=== PATIENT | female | born 1960 | race Caucasian/White ===

== ENCOUNTER 2016-05-03 23:22 | Inpatient (IN) | payer MEDICARE, MEDICAID ==
[~2016-05-03] VITALS: Ht 176.5 cm; Wt 198.1 kg
[~2016-05-03 23:22] MED LIST: ALPR0.5T8 PO; AMLO2.5T PO; ASCO500C6 PO; ASPI-628 PO; ASPI81TA3 PO; CAND32TA2 PO; CARV12.52 PO; CEPH500C PO; CHOL200047 PO; CLIN-78 PO; CLIN30GE2 TP; CYAN1TAB42 PO; DOCU250C2 PO; FLUT16SP2 NS; FURO40TA4 PO; ISOS30TA PO; LEVO137T2 PO; MEDR10TA PO; MEDR10TA9 PO; METH750T3 PO; MULTIVITAMIN; MYCC TOP; NEFA150T PO; OMEP-113 PO; OMPR20CCR PO; OXYC-284 PO; ROSU5TAB PO
[2016-05-04] VITALS (12 sets, daily range): BP systolic 138–179; BP diastolic 64–80; PULSE 58–110; RESP 18–24; O2SAT 94–100
--- NOTE | 2016-05-04 | ED.REPORT ---
HPI-General Illness Date of Service May 04, 2016 ED Provider: Edd Grimm MD A 55 year old female with a history of CHF, hypertension, diabetes mellitus, GERD and panniculitis presents to the ED via EMS complaining of fever that began at 2100. Associated symptoms include fever, chills, fatigue, diaphoresis, nausea, defecation, vomiting, SOB and chest pain. Her chest began shortly after the fever. Patient took 2 Tylenol and one antibiotic at 2100 with no relief. She denies any recent sick contacts. Patient states that she was taking Humira for "boils" but she was unable to refill her prescription for approx. 2 weeks and attributes her current symptoms to this. She recently began Humira again 3 days ago. She denies diarrhea, cough or dysuria. Patient is a difficult historian. Nursing Notes Stated Complaint: FEVER, NOT FEELING WELL Nursing Notes Reviewed: Yes (Modlar, meds not reconciled) Allergies: Coded Allergies: latex (Verified Allergy, Intermediate, SKIN BLISTERS, 10/07/15) Cat Dander (Verified Allergy, Unknown, 04/02/14) TAPE (Verified Allergy, Unknown, 04/04/14) lisinopril (Verified Allergy, Unknown, makes me "drunk", 04/16/14) metformin (Verified Allergy, Unknown, 05/04/16) Uncoded Allergies: POLLENS (Allergy, Unknown, 04/02/14) Scheduled Amlodipine (Amlodipine) 2.5 Mg Tablet 2.5 MG PO DAILY Aspirin (Aspir 81) 81 Mg Tablet.dr 81 MG PO DAILY Aspirin Chew (Aspirin Chew) 81 Mg Tab.chew 81 MG PO DAILY Candesartan Cilexetil (Atacand) 32 Mg Tablet 32 MG PO DAILY Carvedilol (Carvedilol) 12.5 Mg Tablet 12.5 MG PO BID Cephalexin (Cephalexin) 500 Mg Capsule 500 MG PO QID Cholecalciferol (Vitamin D3) (Vitamin D3) 2,000 Unit Capsule 1-2 CAPSULE PO DAILY Clindamycin (Clindamycin) 300 Mg Capsule 300 MG PO QID Clindamycin Phosphate (Clindamycin Phosphate Gel) 30 Gm Gel..gram. 1 APPLIC TP BID Fluticasone Propionate (Flonase Nasal) 16 Gm Jackson.susp 1 SPRAY NS BID Fluticasone Propionate (Flonase Nasal) 16 Gm Jackson.susp 2 SPRAYS NS DAILY Furosemide (Furosemide) 40 Mg Tablet 40 MG PO DAILY Isosorbide Mononitrate (Imdur) 30 Mg Tab.er.24h 30 MG PO DAILY Levothyroxine (Levothyroxine) 137 Mcg Tablet 137 MCG PO DAILY Levothyroxine (Levothyroxine) 137 Mcg Tablet 137 MCG PO DAILY Medroxyprogesterone (Medroxyprogesterone) 10 Mg Tablet 10 MG PO DAILY Medroxyprogesterone Acetate (Provera) 10 Mg Tablet 10 MG PO BID Nefazodone (Nefazodone) 150 Mg Tablet 150 MG PO DAILY Nefazodone (Nefazodone) 150 Mg Tablet 2 TAB PO HS Omeprazole (Prilosec) 20 Mg Capcr 20 MG PO BID Omeprazole Magnesium (Omeprazole) 20 Mg Capsule.dr 20 MG PO DAILY Rosuvastatin Calcium (Crestor) 5 Mg Tablet 5 MG PO DAILY Scheduled PRN Alprazolam (Alprazolam) 0.5 Mg Tablet 0.5 MG PO TID PRN PRN For Anxiety Alprazolam (Alprazolam) 0.5 Mg Tablet 0.5 MG PO TID PRN PRN For Anxiety Docusate Sodium (Docusate Sodium) 250 Mg Capsule 250 MG PO BID PRN PRN For Constipation Methocarbamol (Methocarbamol) 750 Mg Tablet 750 MG PO QID PRN PRN For Spasm Oxycodone HCl/Acetaminophen 5-325 (Percocet 5-325) 1 Each Tablet 1 TAB PO Q4 PRN PRN For Pain Miscellaneous Medications ([multivitamin 9]) Ascorbic Acid (Vitamin C) 500 Mg Capsule.er 500 MG PO Candesartan Cilexetil (Atacand) 32 Mg Tablet 32 MG PO Cyanocobalamin/Folic Acid (Vitamin V27-Ehjxo Acid Tablet) 1 Each Tablet 1 EACH PO Nystatin (Nystatin) 60 Applic/15 Gm Cream 60 APPLIC TOP General Time Seen by MD: 23:59 Chief Complaint Fever Hx Obtained From: Patient Arrived By: Ambulance Sudden in Onset?: No Onset Occurred: 1 - 4 hours ago Symptom Duration: Since onset Associated with: Reports: Fever Additional Notes: Shaking Pertinent Negative: Pt denies other symptoms Recent Healthcare: No recent doctor visit, No recent hospitalization Past Medical History Past Medical History Notes: Last Admitted March 2014 for panniculitis Last ED visit was in September 2015 for panniculitis Past Medical History ovarian cysts cataract GERD 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 - followed at the [facility], recently had MRI patient reports "it is a medical mystery", and it sounds like diagnosis is actually unclear History of reccurent panniculitis Reports: Congestive heart failure, Diabetes mellitus, Hypertension Past Surgical History pannus removal Reports: Hysterectomy Smoking History Former Smoker Social History Alcohol Use: Denies alcohol use Drug Use: Denies drug use Other Social History: Local resident Ambulatory Status Wheelchair Review of Systems Full Review of Systems Constitutional: Reports: Chills, Fatigue, Fever Respiratory: Reports: Shortness of breath, Denies: Non-productive cough Cardiovascular: Reports: Chest pain GI: Reports: Nausea, Vomiting, Denies: Diarrhea Female: Denies: Dysuria Skin: Reports Diaphoresis Neurologic: Reports: Shaking, Denies: Change LOC Complete sys rev & neg: except as marked. Physical Exam Vital Signs Vital Signs Date Time Temp Pulse Resp B/P Pulse Ox O2 Delivery O2 Flow Rate FiO2 05/04/16 00:04 39.4 110 24 173/80 94 Room Air Initial VS: Reviewed, Unavailable (none on chart, ordered) Extremities: Vascular intact, Neuro intact, No swelling, No tenderness Neurologic: Alert, Oriented, Nonfocal General/Constitutional: Awake, Alert, Not toxic appearing Appearance / Presentation: Positive: Obese, morbidly GENERAL: Temp 102.5 F for EMS Ornery Fatigued Patient is very focused on "Humira withdrawal" and requires frequent redirection to current symptoms Patient states that she knows her medications but is unable to tell them too me now because she is "too tired" Head / Eyes: Atraumatic, Normocephalic, PERRL Respiratory / Chest: Atraumatic, Breath sounds NL, Breath sounds = bilat Cardiovascular: Regular rhythm, Heart sounds NL Heart Rate / Rhythm: Positive: Tachycardia CARDIO: No edema in lower extremitites Abdomen: Atraumatic, Soft, Non-tender ABDOME: Morbidly obese belly Severe pinniculitis across abdomen (approx. 30 cm) No crepitus No induration No abscess Skin: Atraumatic, Warm, Dry Neurologic: Oriented X3 (No altered mental status ), Speech NL, No motor deficits, No sensory deficits Interpretation & Diagnostics Lab Results Interpretation Result Diagram: 05/04/16 0045 05/04/16 0045 Test 05/04/16 00:45 White Blood Count 16.0th/mm3 (3.8-10.1) Red Blood Count 4.60mil/mm3 (3.90-5.20) Hemoglobin 14.1g/dL (12.0-15.6) Hematocrit 43.2% (35.0-46.0) Mean Corpuscular Volume 93.9fL (81-100) Mean Corpuscular Hemoglobin 30.7pg (27.0-35.0) Mean Corpuscular Hemoglobin Concent 32.6% (32.0-37.0) Red Cell Distribution Width 13.7% (12.3-15.4) Platelet Count 209bil/L (150-400) Neutrophils (%) (Auto) 88.9% (40-74) Lymphocytes (%) (Auto) 3.2% (14-46) Monocytes (%) (Auto) 7.0% (4-12) Eosinophils (%) (Auto) 0.3% (0-5) Basophils (%) (Auto) 0.1% (0-3) Erythrocyte Sedimentation Rate 12mm/hr (0-40) Sodium Level 136mEq/L (134-144) Potassium Level 4.4mEq/L (3.5-5.2) Chloride Level 98mEq/L (97-108) Carbon Dioxide Level 24mmol/L (18-29) Blood Urea Nitrogen 11mg/dL (6-24) Creatinine 0.87mg/dL (0.57-1.00) Estimat Glomerular Filtration Rate 97mL/min (>59) Glucose Level 264mg/dL (60-99) Lactic Acid Level 2.2mmol/L (0.4-2.0) Calcium Level 9.2mg/dL (8.5-10.1) Magnesium Level 1.4mg/dL (1.6-2.6) Total Bilirubin 0.8mg/dL (0.0-1.2) Aspartate Amino Transf (AST/SGOT) 23U/L (0-50) Alanine Aminotransferase (ALT/SGPT) 26U/L (0-32) Alkaline Phosphatase 72U/L (25-150) Troponin T 0.010ug/L (0.0-0.011) Total Protein 7.0g/dL (6.4-8.4) Albumin 3.9g/dL (3.4-5.0) Procalcitonin 0.86ng/mL (0.00-0.08) Lab Results Interpretation: CBC positive leukocytosis CMP mild hyperglycemia Lactic acid marginally elevated Pro calcitonin marginally elevated Magnesium low Blood cultures 2 pending UA pending ECG Interpretation ECG Interpretation: Sinus Tachycardia Rate 107 No ischemic changes Time: 00:24 Interpreted by: ED physician X-Ray Chest Interpretation Chest Xray Interpretation: IMPRESSION: No evidence of pneumonia No acute abnormalities Interpretation / Wet Read by: Wet read ED physician Re-Eval/Medical Decision Med Decision/Clinical Course This is a 55-year-old obese female who claims some dermatological condition for which she has been prescribed Humira immunosuppressant. She has a fairly challenging historian, as she is focused on all of her problems being due to the fact that she did not get her Humira for much of March-and she believed she developed withdrawal and that is the cause of her current symptoms. This is despite the fact that she has just been restarted on Humira, receiving a injection on Wednesday. She she presented tonight because she developed a fever, and shaking profound chills, and just felt lousy. She has a mild sense of shortness of breath and just feels lousy, so called for aid, help her get to the Hospital-but also may require transfer by EMS. EMS found her with a temperature of 102.5. She denies abdominal pain, nausea, vomiting, dysuria. She is not aware of having any redness soreness or wounds anywhere, she has had prior presentations for panniculitis. On exam she is fatigued, but does not appear toxic. She has a low-grade tachycardia. She is very talkative, however she is also izmi-shprhkokwz-way says she is too tired to tell me her medication list for example. He self administered a single unknown antibiotic that she had left over from a unknown infection from an unknown time tonight before coming in. Also taken Tylenol. On exam she has a marked panniculitis of the lower abdomen. There is no crepitus, there are no findings of a e abscess, but is a sizeable area of the pannus is involved. The patient received IV fluids. Blood cultures were drawn, labs are drawn. Labs are notable for leukocytosis, mild lactic acid elevation, mild hyperglycemia (she is a diabetic) and hypomagnesemia. She meets sepsis 2.0 criteria with leukocytosis, lactic acid, And heart rate greater than 90 with cellulitis. She does not meet current sepsis 3.0 definition's of organ dysfunction involvement. I have asked the nurse sees a skin pen outlined current area of cellulitis to help facilitate monitoring. She has been started on Zosyn and vancomycin for soft tissue infection and sepsis, in the setting of a recent immunosuppressive administration in the form of Humira. (The patient believes that it is withdrawal of Humira that the cause of the fever, and does not seem to appreciate that the medication is an actual immunosuppressent and come both itself resulted in a fever, and can actually increase the risk of illness or infections) The patient is being admitted for continued management. Source of Hx: Old records, EMS Time of Eval: 02:19 Patient Status: Condition improved Re-Evaluation/Progress Note: Patient is rechecked. She is resting comfortably and her symptoms have improved. She is informed of her lab results and diagnosis. All questions are addressed. She understands and agrees with the treatment plan to admit Consultation : Referral / Consult Name: Masha Echols DO Consulted With: Hospitalist Call Returned at: 02:23 Radiology Clerk: Will see patient, Agrees with eval, Agrees with plan, Accepts admit Differential Diagnosis: Positive: Cellulitis, Diabetes mellitus, Negative: Abdominal pain, Abscess, Allergies, G-tube repair/replacement, Hematoma, Malingering, Medical clearance, Neutropenia, Pneumonia, Tonsillitis, acute Counseled Regarding: Diagnosis, Lab results, Need for admission Discharge & Departure Primary Impression: Panniculitis Additional Impressions: H/O immunosuppressive therapy Hypomagnesemia Morbid obesity Obesity type: unspecified obesity type Qualified Code: E66.01 - Morbid ( severe) obesity due to excess calories Disposition: ADMITTED TO HOSPITAL Discharge Condition All VS Reviewed: Yes Condition: Stable Referrals: Jarek Buckner MD (PCP) Jordan Attestation Portions of this note were transcribed by Luisito Griffiths. I, Dr. Grimm personally performed the history, physical exam and medical decision-making; I reviewed and confirmed the accuracy of the information in the transcribed note. Signed by: Jordan Robbins, 05/04/16 0300. copies to: Jarek Buckner MD, Matthew F MD May 04, 2016 00:00 LUISITO GRIFFITHS May 04, 2016 00:12
[2016-05-04] MEDS ORDERED: Piperacillin-Tazo 3.375 Gm Inj 3.375 GM in Dextrose 5% Minibag Plus 50 ML IV ONE (00:15)
[2016-05-04] MEDS ORDERED: Vancomycin Dose per Pharmacist XX ONE (00:15)
[2016-05-04] MEDS ORDERED: Ondansetron 2 mg/mL 2 mL Inj IVPUSH ONE (00:15)
[2016-05-04] MEDS ORDERED: 0.9% Sodium Chloride 1,000 ML IV ONE (00:25)
[2016-05-04 01:00] LABS: BASOPHILS % (AUTO) 0.1 % (0-3); EOSINOPHILS % (AUTO) 0.3 % (0-5); Mean Corpuscular Hemoglobin 30.7 pg (27.0-35.0); Mean Corpuscular Volume 93.9 fL (81-100); NEUTROPHILS % (AUTO) 88.9 % (40-74); Platelet Count 209 bil/L (150-400)
[2016-05-04 01:39] LABS: Magnesium 1.4 mg/dL (1.6-2.6); TROPONIN T 0.01 ug/L (0.0-0.011)
[2016-05-04] MEDS ORDERED: Magnesium Sulf 2 Gm/50mL Water 2 GM in IV Premix 1 EACH IV ONE ×2 (02:05→11:25)
[2016-05-04 02:11] LABS: ERYTHROCYTE SEDIMENTATION RATE 12 mm/hr (0-40)
[2016-05-04 02:20] LABS: APPEARANCE,URINE CLEAR (CLEAR,HAZY); COLOR,URINE YELLOW (YELLOW); OCCULT BLOOD,URINE NEGATIVE (NEGATIVE); UROBILINOGEN,URINE NORMAL (NORMAL)
[2016-05-04] MEDS ORDERED: Alum-Mag Hydrox-Simeth 30 mL Suspension PO PRN (02:25)
[2016-05-04] MEDS ORDERED: Polyethylene Glycol (PEG) 17 Gm Powder PO PRN (02:25)
--- NOTE | 2016-05-04 03:45 | NUR ---
Admit Pt admitted to [facility] Rm 1027 at 0300 from the ER. Pt arrived in a tucker bed. Pt is alert and oriented x3. Moves all extremities equally. Pt states she normally uses a wheelchair at home or a cane to walk short distances. Pt denies chest pain/ nausea/ sob at this time. Reports generalized body ache at 3/10 which is tolerable for her. Vancomycin infusing at 250 ml/hr and magnesium IV started at 50 ml/hr per orders. Pt caregiver brought bipap machine from home, pt normally on 4L O2 at home, O2 sats at 94%. Abdomen pink and outlined in pen. Pt watched orientation video, oriented to room and call light. currently talking to pt now.
[2016-05-04] MEDS ORDERED: ADAL40PE SQ (04:07)
--- NOTE | 2016-05-04 04:13 | PCM.HPMED ---
Subjective Date of Service May 04, 2016 Primary Provider: Admitting Physician: Masha Echols DO Primary Care Physician: Jarek Buckner MD Attending Physician: Masha Echols DO Admit Status: From the Emergency Department Chief Complaint: Fever, chills, sweats, SOB, chest pain. History of Present Illness: This is a 55 Y/O F with hx of CHF, hypertension, DM2 diet controlled(patient unable to tolerate metformin), GERD and recurrent panniculitis status post panniculectomy, history of recurrent abscesses, presents to [facility] ED complaining of fevers that began at 2100 05/03/2016 followed by chills, ears, fatigue, diaphoresis, nausea, urge to defecate with normal bowel movements, vomiting, SOB and chest pain. Her chest began shortly after the fever. Patient took 2 Tylenol and one antibiotic at 2100 with no relief. She denies any recent sick contacts. 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 3 weeks and attributes her current symptoms to this. She recently began Humira again this last Wednesday. She takes one shot per week of Humira. She denies diarrhea, cough or dysuria. Patient is a difficult historian. In emergency department: Vital signs initially temperature 39.4, pulse 110, respiratory rate 24, blood pressure 173/80, O2 sat 94% on room air. Repeat vitals: Temperature 37.7, pulse 99, respiratory rate 20, blood pressure 143/66, O2 97% on 4 L nasal cannula. CBC showed WBC's 16.0, neutrophils 88.9 Chem panel showed glucose 264, mag 1.4L, procalcitonin 0.86, troponin 0.010, lactic acid 2.2. UA grossly negative. ED medications: Patient received Tylenol 975 mg once, Zosyn once IV, Vancomycin 2000 mg once IV, normal saline 1 L, Zofran 8 mg. Review of Systems: Comprehensive review of systems was conducted and was found negative the exception of that described in H&P. Allergies Coded Allergies: latex (Verified Allergy, Intermediate, SKIN BLISTERS, 10/07/15) Cat Dander (Verified Allergy, Unknown, 04/02/14) TAPE (Verified Allergy, Unknown, 04/04/14) lisinopril (Verified Allergy, Unknown, makes me "drunk", 04/16/14) metformin (Verified Allergy, Unknown, 05/04/16) Uncoded Allergies: POLLENS (Allergy, Unknown, 04/02/14) Home Medications Scheduled Amlodipine (Amlodipine) 2.5 Mg Tablet 2.5 MG PO DAILY Aspirin (Aspir 81) 81 Mg Tablet.dr 81 MG PO DAILY Aspirin Chew (Aspirin Chew) 81 Mg Tab.chew 81 MG PO DAILY Candesartan Cilexetil (Atacand) 32 Mg Tablet 32 MG PO DAILY Carvedilol (Carvedilol) 12.5 Mg Tablet 12.5 MG PO BID Cephalexin (Cephalexin) 500 Mg Capsule 500 MG PO QID Cholecalciferol (Vitamin D3) (Vitamin D3) 2,000 Unit Capsule 1-2 CAPSULE PO DAILY Clindamycin (Clindamycin) 300 Mg Capsule 300 MG PO QID Clindamycin Phosphate (Clindamycin Phosphate Gel) 30 Gm Gel..gram. 1 APPLIC TP BID Fluticasone Propionate (Flonase Nasal) 16 Gm Veyo.susp 1 SPRAY NS BID Fluticasone Propionate (Flonase Nasal) 16 Gm Veyo.susp 2 SPRAYS NS DAILY Furosemide (Furosemide) 40 Mg Tablet 40 MG PO DAILY Isosorbide Mononitrate (Imdur) 30 Mg Tab.er.24h 30 MG PO DAILY Levothyroxine (Levothyroxine) 137 Mcg Tablet 137 MCG PO DAILY Levothyroxine (Levothyroxine) 137 Mcg Tablet 137 MCG PO DAILY Medroxyprogesterone (Medroxyprogesterone) 10 Mg Tablet 10 MG PO DAILY Medroxyprogesterone Acetate (Provera) 10 Mg Tablet 10 MG PO BID Nefazodone (Nefazodone) 150 Mg Tablet 150 MG PO DAILY Nefazodone (Nefazodone) 150 Mg Tablet 2 TAB PO HS Omeprazole (Prilosec) 20 Mg Capcr 20 MG PO BID Omeprazole Magnesium (Omeprazole) 20 Mg Capsule.dr 20 MG PO DAILY Rosuvastatin Calcium (Crestor) 5 Mg Tablet 5 MG PO DAILY Scheduled PRN Alprazolam (Alprazolam) 0.5 Mg Tablet 0.5 MG PO TID PRN PRN For Anxiety Alprazolam (Alprazolam) 0.5 Mg Tablet 0.5 MG PO TID PRN PRN For Anxiety Docusate Sodium (Docusate Sodium) 250 Mg Capsule 250 MG PO BID PRN PRN For Constipation Methocarbamol (Methocarbamol) 750 Mg Tablet 750 MG PO QID PRN PRN For Spasm Oxycodone HCl/Acetaminophen 5-325 (Percocet 5-325) 1 Each Tablet 1 TAB PO Q4 PRN PRN For Pain Miscellaneous Medications ([multivitamin 9]) Ascorbic Acid (Vitamin C) 500 Mg Capsule.er 500 MG PO Candesartan Cilexetil (Atacand) 32 Mg Tablet 32 MG PO Cyanocobalamin/Folic Acid (Vitamin T92-Wmprd Acid Tablet) 1 Each Tablet 1 EACH PO Nystatin (Nystatin) 60 Applic/15 Gm Cream 60 APPLIC TOP PMH Last Admitted March 2014 for panniculitis Last ED visit was in September 2015 for panniculitis ovarian cysts cataract GERD 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 - followed at the [facility], recently had MRI patient reports "it is a medical mystery", and it sounds like diagnosis is actually unclear History of reccurent panniculitis Reports: Congestive heart failure, Diabetes mellitus, Hypertension Wheelchair for ambulation Surgical History panniculectomy Reports: Hysterectomy Family History Coronary artery disease Congestive heart failure Uncle with cancer of unknown type Diabetes mellitus multiple family members Social History Hx Alcohol Use: Yes (SELDOM) Hx Substance Use: Yes (HYDROCODONE, OXYCODONE PRN) Smoking Status: Former Smoker Exam Vital Signs Vital Sign - Last Date Time Temp Pulse Resp B/P Pulse Ox O2 Delivery O2 Flow Rate FiO2 05/04/16 01:55 37.7 99 20 143/66 97 Nasal Cannula 4 Intake and Output 05/03/16 05/03/16 05/04/16 Cumulative From/Thru 15:00 23:00 07:00 05/04/16 00:04 - 05/04/16 00:49 Intake Total 1000 ml 1000 ml Balance 1000 ml 1000 ml Intake IV Total 1000 ml 1000 ml Exam General: Alert, oriented 3, massively obese, pleasant HEENT: Head cephalic atraumatic, PERRLA, EOMI, neck is supple, however difficult to palpate given adiposity, oropharynx difficult exam given anatomy patient is edentulous, Lungs: clear to auscultation all talbot bilaterally Heart: Heart sounds regular rate and rhythm no detectable murmur Abdomen: Hyperactive bowel tones, massively obese, lower abdomen with erythematous, warm area consistent with panniculitis likely acute given presentation. Abdomen mildly diffusely tender. Skin: Multiple small to medium sized abscesses underneath the breasts bilaterally, right groin and medial thigh, posterior right thigh proximal to popliteal area. Neurological: Alert and oriented 3, cranial nerves II through XII grossly intact bilaterally Lab and Diagnostics Result Diagram: 05/04/16 0045 05/04/16 0045 Assessment & Plan This is a 55 Y/O F with hx of CHF, hypertension, DM2, GERD and panniculitis presents to [facility] ED complaining of fever onset 05/03/2016. Associated symptoms included fever, chills, fatigue, diaphoresis, nausea, defecation, vomiting, SOB and chest pain. # Acute Sepsis, present on admission. Active -Acute sepsis criteria met for tachypnea on presentation with a rate of 24, temperature 102.5, heart rate 110, patient's source is panniculitis -UA in ED was negative -Procalcitonin 0.86 -EKG significant for sinus tach 107, without ST or T-wave abnormality -Chest x-ray: No evidence of pneumonia, no acute abnormalities -Patient received single IV bolus of 1 L in ED -PT/PTT/INR -O2 Sats to be kept > 94% -Plan to give further fluid resuscitation if needed, pt with dx of CHF -Sputum Cx -Blood Cx X 2 ordered and pending -We will order a.m. labs-> CBC with Diff, CMP, serial lactate levels, serial cardiac enzymes, serial procalcitonin, -Continue IV antibiotics vancomycin and Pip/Tazo, started in ED - infectious disease consult in the a.m., am team to request # Panniculitis, present on admission. Active -Recently restarted her Humira after having been out of medication for 2 weeks. -We will hold Humira -Antibiotics as previously stated # Hyperglycemia in a diabetic patient, does not admission, active -Glucose was 264 in the ED -Medium dose correction scale insulin -Heart healthy low-carb diet # Hypomagnesemia, this admission, active -Magnesium 1.4 -Replete magnesium Chronic problems # Congestive heart failure, -Continue home medication Amlodipine 2.5 MG PO DAILY -Continue home medication Candesartan 32 MG PO DAILY -Continue home medication Carvedilol 12.5 MG PO BID -Continue home medication Furosemide 40 MG PO DAILY -Continue home medication Isosorbide Mononitrate 30 MG PO DAILY # Hyperlipidemia, -Continue home medication Rosuvastatin 5 MG PO DAILY # Diabetes mellitus, # Hypertension, -Medications as stated above # GERD -Continue home medication Omeprazole 20 MG PO BID # Hypothyroidism -Continue home medication Levothyroxine 137 MCG PO DAILY # Anxiety -Continue home medication Alprazolam 0.5 MG PO TID PRN PRN For Anxiety # Chronic pain issues -We will continue home medication Methocarbamol 750 MG PO QID PRN PRN For Spasm -We will continue home medication Oxycodone HCl/Acetaminophen 5-325 1 TAB PO Q4 PRN PRN For Pain # Obstructive sleep apnea -Patient has own BiPAP mask Disposition: Admitted to in patient service secondary to severity of presenting symptoms, treatment plan, complexity of clinical work up, and risk of adverse events. Expected length of stay minimum 2 nights. Will discharge when deemed medically stable. Code status: Full code PCP: Jarek Buckner Attending Statement The patient was seen and examined together with house staff on 05/04/2016 and I agree with the history, exam and plan as outlined in the note above. Orlin Thomas DO May 04, 2016 03:09 Masha Echols DO May 04, 2016 06:02
[2016-05-04] MEDS ORDERED: Glucose 40% Oral Gel 15 Gm Tube PO PRN (04:15)
[2016-05-04] MEDS ORDERED: OXYC1TAB24 PO (05:20)
[2016-05-04] MEDS ORDERED: ASPI-973 PO (05:20)
[2016-05-04] MEDS ORDERED: FLUT16SP NS (05:20)
[2016-05-04] MEDS ORDERED: OMEP20CA11 PO (05:20)
[2016-05-04 07:21] LABS: BASOPHILS % (AUTO) 0.1 % (0-3); EOSINOPHILS % (AUTO) 0 % (0-5); Mean Corpuscular Hemoglobin 30.8 pg (27.0-35.0); Mean Corpuscular Volume 94.3 fL (81-100); NEUTROPHILS % (AUTO) 91.9 % (40-74); Platelet Count 192 bil/L (150-400)
[2016-05-04] MEDS: 0.9% Sodium Chloride 1,000 ML IV SCH ×2 (07:55→14:30)
[2016-05-04] MEDS: Insulin LISPRO 300 Unit/3 mL Inj SUBQ SCH ×4 (08:11→22:00)
[2016-05-04] MEDS: Heparin 5,000 Unit/mL Inj SUBQ SCH ×2 (08:11→18:32)
[2016-05-04 08:26] LABS: TROPONIN T < 0.010 ug/L (0.0-0.011)
[2016-05-04] MEDS: Vancomycin Dose per Pharmacist XX SCH (08:30)
[2016-05-04] MEDS ORDERED: Influenza (Adult) Vaccine 0.5 mL Syringe IM ONE (08:30)
--- NOTE | 2016-05-04 09:22 | DRSVH ---
PROCEDURE: X-RAY CHEST ONE VIEW, PORTABLE ([id number]) INDICATIONS: fever, SOB TECHNIQUE: One view of the chest was acquired. COMPARISON: [facility], , CHEST 1VW (PORTABLE), 04/21/2014, 18:22. FINDINGS: Surgical changes and devices: None. Lungs and pleura: No pleural effusions or pneumothorax. Lungs are clear. Mediastinum: Mediastinal contours appear normal. Heart size is normal. Bones and chest wall: No suspicious bony lesions. Overlying soft tissues appear unremarkable. IMPRESSION: No acute cardiopulmonary disease. Dictated by: Matthew Nails [facility] Interpreted: Debi Snyder MD on 05/04/2016 at 9:22 Transcribed by: LIANA on 05/04/2016 at 9:22 Approved by: Debi Snyder M.D. on 05/04/2016 at 9:49
[2016-05-04] MEDS: Piperacillin-Tazo 3.375 Gm Inj 3.375 GM in Dextrose 5% Minibag Plus 50 ML IV SCH ×2 (09:36→20:08)
[2016-05-04] MEDS: Vancomycin Inj 2,000 MG in 0.9% Sodium Chloride 500 ML IV SCH (14:31)
[2016-05-04] MEDS: Ondansetron 2 mg/mL 2 mL Inj IVPUSH PRN (14:43)
[2016-05-05] VITALS (7 sets, daily range): BP systolic 130–179; BP diastolic 61–83; PULSE 66–93; RESP 18–20; O2SAT 95–97
[2016-05-05] MEDS: Heparin 5,000 Unit/mL Inj SUBQ SCH ×3 (00:20→17:22)
[2016-05-05] MEDS: 0.9% Sodium Chloride 1,000 ML IV SCH ×3 (02:18→13:08)
[2016-05-05] MEDS: Vancomycin Inj 2,000 MG in 0.9% Sodium Chloride 500 ML IV SCH ×3 (02:19→23:38)
[2016-05-05] MEDS: Piperacillin-Tazo 3.375 Gm Inj 3.375 GM in Dextrose 5% Minibag Plus 50 ML IV SCH ×2 (04:24→10:17)
--- NOTE | 2016-05-05 06:45 | NUR ---
Activity Pt up to BR with SBA. Complains of pain in her hip, general discomfort, and aching. General redness of skin noted on back and R arm pit, back also has rough nodules across shoulders. APAP given for pain and also offers fever reduction, afebrile this shift. Pt states she is lightheaded on toilet, CS checked and 158. Sitting up in bed with a cold beverage and no further symptoms. Pt uses CPAP and 4L O2 while sleeping, no complaints of SOB. IV infusing NS at 125 and abx prn. No complaints of chest pain, on tele SR 80s. Reminding following shift to follow up with infections disease consult. Care Continues
[2016-05-05 06:49] LABS: BASOPHILS % (AUTO) 0.1 % (0-3); EOSINOPHILS % (AUTO) 1.4 % (0-5); MONOCYTES % (AUTO) 7.7 % (4-12); Mean Corpuscular Hemoglobin 30.8 pg (27.0-35.0); NEUTROPHILS % (AUTO) 79.5 % (40-74); Platelet Count 155 bil/L (150-400)
[2016-05-05 07:19] LABS: Magnesium 1.9 mg/dL (1.6-2.6)
--- NOTE | 2016-05-05 07:28 | PCM.PHAPRO ---
Progress Fever, chills, sweats, SOB, chest pain. VANCOMYCIN DOSING PER PHARMACY Indication: Septic/pannicullitis, immunosuppressed As of 05/04: Labs: SCr: 0.87 WBC: 16 Weight: 193.2 kg Additional abx: zosyn Blood cultures: Pending Plan: - Pt was given a loading dose on 05/04 @0150 of vancomycin 2000 mg IV once - Will give vancomycin 2000 mg IV q12h beginning 05/04 @ 1400 - Will order trough to be drawn on 05/05 @1330 before the 4th dose Aurea Rucker PharmD May 05, 2016 07:27
[2016-05-05] MEDS: Vancomycin Dose per Pharmacist XX SCH (08:30)
[2016-05-05] MEDS: Insulin LISPRO 300 Unit/3 mL Inj SUBQ SCH ×4 (08:35→21:23)
[2016-05-05] MEDS: Ondansetron 2 mg/mL 2 mL Inj IVPUSH PRN (10:14)
--- NOTE | 2016-05-05 10:17 | NUR ---
Nausea Pt c/o nausea this a.m. after breakfast. Was able to eat breakfast without problem. Administered 8 mg IVP Zofran. Care continues.
--- NOTE | 2016-05-05 11:06 | NUR ---
Social Work Continued Discharge Planning: SW met with patient at bedside to discuss discharge plan. Patient is a 55 year old female admitted on 05/04/16 for panniculitis, septic, and immunosuppressed. Patient payer as Medicare. Patient has HS secondary. Patient has no [place] [facility] disability nor [place] benefits. Patient resides in [facility]. Patient states PCP as MD Buckner. Patient states emergency contact as daughter Eileen, . Patient states pharmacy of choice as [facility]. Patient has no [facility] history. Patient has a wheelchair, walker, cane, 02 via [employer] and Bip[employer] at home. Patient states having a current caregiver via [employer] [facility] who assist with care needs M-F from 11-5pm. Patient states [facility] social sciences chair as Char Hoover. JESSICA spoke to Char's [facility] supervisor compounding and finishing who states that patient current with 169hrs/month. Patient also current with [employer]. JESSICA faxed clinicals to [facility] at [phone]. No other anticipated discharge needs at this time. Patient to discharge via [facility] transport services. SW to follow. PLAN: Home with continued [facility] caregiving services M-F and [employer] assistance. SW to follow pending further clinical course. Transport home via [facility] transport at discharge. Quyen RIVAS Addendum: 05/05/16 at 1118 by HONEY QUAN Amended: Links added.
--- NOTE | 2016-05-05 13:28 | PCM.PNMED ---
Subjective Date of Service May 05, 2016 Subjective pt further responded very well, less erythematous and pain on pannus remained afebrile overnight Exam Vital Signs Vital Sign - Last Date Time Temp Pulse Resp B/P Pulse Ox O2 Delivery O2 Flow Rate FiO2 05/05/16 11:05 36.7 78 18 157/83 97 Room Air 05/05/16 05:41 4.00 Intake and Output 05/04/16 05/04/16 05/05/16 Cumulative From/Thru 15:00 23:00 07:00 05/04/16 00:04 - 05/05/16 05:41 Intake Total 568 ml 1429 ml 800 ml 4604 ml Output Total 2450 ml 1100 ml 3550 ml Balance 568 ml -1021 ml -300 ml 1054 ml Intake Oral 872 ml 800 ml 1872 ml IV Total 568 ml 557 ml 2732 ml Output Urine Total 2450 ml 1100 ml 3550 ml # Voids 2 2 # Bowel Movements 0 0 Exam Middle-aged obese female, no JVD, MMM, no LAD RRR, nl s1, s2 no mrg CTAB, no w,c lower abdomen pannus-eryhtematous, less tender, no ulcer warm, no edema, pulses 2/2 IVs and Medications Medications Reviewed: Medications were reviewed in detail Lab and Diagnostics Result Diagram: 05/05/16 0610 05/05/16 0610 Assessment & Plan This is a 55 Y/O F with hx of CHF, hypertension, DM2, GERD and panniculitis presents to [facility] ED complaining of fever onset 05/03/2016. Associated symptoms included fever, chills, fatigue, diaphoresis, nausea, defecation, vomiting, SOB and chest pain. acute, active #Sepsis, SIRS+tachypnea on presentation with a rate of 24, temperature 102.5, heart rate 110, patient's source is panniculitis,GBS bacteremia. -FU final BCX result -started vanc/zosyn, stop zosyn today given BCX result, likely switch vanc to keflex on dc -no surgical intervention at this time needed given improvement with chronic, stable # Hypomagnesemia, this admission, resolved # Congestive heart failure, -Continue home medication Amlodipine 2.5 MG PO DAILY -Continue home medication Candesartan 32 MG PO DAILY -Continue home medication Carvedilol 12.5 MG PO BID -Continue home medication Furosemide 40 MG PO DAILY -Continue home medication Isosorbide Mononitrate 30 MG PO DAILY # Hyperlipidemia, -Continue home medication Rosuvastatin 5 MG PO DAILY # Diabetes mellitus, continue lisproSS, encouraged wt reduction # Hypertension, -Medications as stated above # GERD -Continue home medication Omeprazole 20 MG PO BID # Hypothyroidism -Continue home medication Levothyroxine 137 MCG PO DAILY # Anxiety -Continue home medication Alprazolam 0.5 MG PO TID PRN PRN For Anxiety # Chronic pain issues -We will continue home medication Methocarbamol 750 MG PO QID PRN PRN For Spasm -We will continue home medication Oxycodone HCl/Acetaminophen 5-325 1 TAB PO Q4 PRN PRN For Pain # Obstructive sleep apnea -Patient has own BiPAP mask Disposition: tomorrow home once sensitivity back Code status: Full code PCP: Jarek Buckner Time spent 35min Oliva Ellsworth MD May 05, 2016 13:28
[2016-05-05] MEDS ORDERED: Vancomycin Serum Trough XX ONE (13:30)
--- NOTE | 2016-05-05 14:50 | PCM.PHAPRO ---
Progress Fever, chills, sweats, SOB, chest pain. VANCOMYCIN DOSING PER PHARMACY Goal trough: 15-20 Blood cultures: Beta strep group B bacteremia Other abx: N/A A: Trough on 05/05 @ 1330 came back at 9.8 P: Increasing vancomycin dose to vancomycin 2000 mg IV Q8H Drawing another trough on 05/06 @1400 Will evaluate the need to keep vancomycin on when sensitivities come back Pharmacy will continue to monitor as necessary. Aurea Rucker PharmD May 05, 2016 14:50
[2016-05-05] MEDS: oxyCODONE-Acetamin 5-325 mg Tablet PO PRN ×2 (17:23→21:46)
[2016-05-06] VITALS (9 sets, daily range): BP systolic 145–181; BP diastolic 75–98; PULSE 71–80; RESP 18–20; O2SAT 95–98
[2016-05-06] MEDS: Heparin 5,000 Unit/mL Inj SUBQ SCH ×4 (00:38→23:45)
[2016-05-06] MEDS: 0.9% Sodium Chloride 1,000 ML IV SCH ×3 (00:38→17:32)
--- NOTE | 2016-05-06 04:42 | NUR ---
Pain/skin Pt reporting pain to left shoulder at 6/10 saying "the joint is hurting, I think a storm is coming" Pt given 1 tab of Percocet with relief. Pt does have generalized redness to back, also reporting itchiness. Lotion applied, along with baby powder to moisture in groin and folds. Panus redness appears to be decreasing from previous pen line. Pt up to BR with SBA, voiding without issues.
[2016-05-06] MEDS: Vancomycin Inj 2,000 MG in 0.9% Sodium Chloride 500 ML IV SCH (06:40)
[2016-05-06 07:56] LABS: BASOPHILS % (AUTO) 0.1 % (0-3); EOSINOPHILS % (AUTO) 4.5 % (0-5); MONOCYTES % (AUTO) 7.4 % (4-12); Mean Corpuscular Hemoglobin 30.2 pg (27.0-35.0); Mean Corpuscular Volume 95.9 fL (81-100); NEUTROPHILS % (AUTO) 71.5 % (40-74); Platelet Count 183 bil/L (150-400)
[2016-05-06 08:03] LABS: Magnesium 1.7 mg/dL (1.6-2.6); Phosphorus 3.6 mg/dL (2.5-4.9)
[2016-05-06] MEDS: Vancomycin Dose per Pharmacist XX SCH (08:30)
[2016-05-06] MEDS: Insulin LISPRO 300 Unit/3 mL Inj SUBQ SCH ×4 (09:07→21:03)
[2016-05-06] MEDS: diphenhydrAMINE 25 mg Capsule PO PRN ×3 (11:01→23:47)
[2016-05-06] MEDS: oxyCODONE-Acetamin 5-325 mg Tablet PO PRN ×3 (11:02→23:49)
--- NOTE | 2016-05-06 11:37 | NUR ---
Skin Pt has red rash all over back, chest arms and legs. Pt c/o itching. MD notified. Morning dose of vancomycin held per MD. Benadryl given. Pt denies chest pain or SOB. Will continue to monitor.
--- NOTE | 2016-05-06 11:59 | PCM.PNMED ---
Subjective Date of Service May 06, 2016 Subjective Patient developed diffuse erythematous itching rash on torso, back, original area of cellulitis clearing up denied fever or chills, abdominal pain nausea vomiting Exam Vital Signs Vital Sign - Last Date Time Temp Pulse Resp B/P Pulse Ox O2 Delivery O2 Flow Rate FiO2 05/06/16 09:22 80 05/06/16 08:48 37.0 18 162/93 96 Room Air 05/06/16 05:12 4.00 Intake and Output 05/05/16 05/05/16 05/06/16 Cumulative From/Thru 15:00 23:00 07:00 05/04/16 00:04 - 05/06/16 06:23 Intake Total 1060 ml 4087 ml 2197 ml 56357 ml Output Total 2200 ml 1750 ml 7500 ml Balance 1060 ml 1887 ml 447 ml 4448 ml Intake Oral 2200 ml 640 ml 4712 ml IV Total 1060 ml 1887 ml 1557 ml 7236 ml Output Urine Total 2200 ml 1750 ml 7500 ml # Voids 2 # Bowel Movements 0 0 0 Exam Middle-aged obese female, no JVD, MMM, no LAD RRR, nl s1, s2 no mrg CTAB, no w,c lower abdomen pannus-eryhtematous, less tender, no ulcer Back -diffuse erythematous rash, non tender warm, no edema, pulses 2/2 IVs and Medications Medications Reviewed: Medications were reviewed in detail Lab and Diagnostics Result Diagram: 05/06/16 0700 05/06/16 0700 Assessment & Plan This is a 55 Y/O F with hx of CHF, hypertension, DM2, GERD and panniculitis presents to [facility] ED complaining of fever onset 05/03/2016. Associated symptoms included fever, chills, fatigue, diaphoresis, nausea, defecation, vomiting, SOB and chest pain. acute, active #rash due to vancomycin toxicity, increaed Eo, developed 05/05- day2 from first infusion. -benadryl for itchiness, given no systemic reaction, normal LFT, hold off on steroid yet -monitor rash daily, #Sepsis, SIRS+tachypnea on presentation with a rate of 24, temperature 102.5, heart rate 110, patient's source is panniculitis,GBS bacteremia. -FU final BCX result -started vanc/zosyn on adm, stop zosyn 2/ given BCX result, stop vanc, start keflex today -no surgical intervention at this time needed given improvement with chronic, stable # Hypomagnesemia, this admission, resolved # Congestive heart failure, -Continue home medication Amlodipine 2.5 MG PO DAILY -Continue home medication Candesartan 32 MG PO DAILY -Continue home medication Carvedilol 12.5 MG PO BID -Continue home medication Furosemide 40 MG PO DAILY -Continue home medication Isosorbide Mononitrate 30 MG PO DAILY # Hyperlipidemia, -Continue home medication Rosuvastatin 5 MG PO DAILY # Diabetes mellitus, continue lisproSS, encouraged wt reduction # Hypertension, -Medications as stated above # GERD -Continue home medication Omeprazole 20 MG PO BID # Hypothyroidism -Continue home medication Levothyroxine 137 MCG PO DAILY # Anxiety -Continue home medication Alprazolam 0.5 MG PO TID PRN PRN For Anxiety # Chronic pain issues -We will continue home medication Methocarbamol 750 MG PO QID PRN PRN For Spasm -We will continue home medication Oxycodone HCl/Acetaminophen 5-325 1 TAB PO Q4 PRN PRN For Pain # Obstructive sleep apnea -Patient has own BiPAP mask Disposition: delayed due to rash, expect 2more days, home Code status: Full code PCP: Jarek Buckner Time spent 35min Oliva Ellsworth MD May 06, 2016 11:59
[2016-05-06] MEDS ORDERED: Vancomycin Serum Trough XX ONE (14:00)
[2016-05-07] VITALS (8 sets, daily range): BP systolic 154–192; BP diastolic 72–98; PULSE 67–87; RESP 20; O2SAT 93–96
--- NOTE | 2016-05-07 02:15 | NUR ---
High BP [employer]ER notified this RN that pt. was hypertensive. Bandar EDEN paged. No new orders now. Will continue to monitor.
[2016-05-07] MEDS: 0.9% Sodium Chloride 1,000 ML IV SCH ×2 (02:31→06:30)
[2016-05-07 05:48] LABS: BASOPHILS % (AUTO) 0.1 % (0-3); EOSINOPHILS % (AUTO) 4.6 % (0-5); MONOCYTES % (AUTO) 10.6 % (4-12); Mean Corpuscular Hemoglobin 30.4 pg (27.0-35.0); Mean Corpuscular Volume 96.3 fL (81-100); NEUTROPHILS % (AUTO) 68.1 % (40-74); Platelet Count 191 bil/L (150-400)
[2016-05-07 06:09] LABS: Magnesium 1.6 mg/dL (1.6-2.6); Phosphorus 4.6 mg/dL (2.5-4.9)
[2016-05-07] MEDS: Insulin LISPRO 300 Unit/3 mL Inj SUBQ SCH ×4 (08:00→22:00)
[2016-05-07] MEDS: diphenhydrAMINE 25 mg Capsule PO PRN ×2 (09:58→16:14)
[2016-05-07] MEDS: Heparin 5,000 Unit/mL Inj SUBQ SCH ×2 (09:59→17:22)
--- NOTE | 2016-05-07 11:56 | NUR ---
Social Work Continued Discharge Planning: SW spoke to patient at bedside to discuss discharge plan. Patient resides home in [facility] with caregiver support. Patient current with [facility] and counseling case manager is Char Hoover, . Patient receives caregiver support M-F from 11-5pm. Patient requesting transport home upon discharge via [facility]. SW to coordinate transport home tomorrow, pending clinical course. Patient denied any further discharge needs at this time. SW to follow. PLAN: Home with continued caregiver support via [employer] program. SW to follow for continued discharge needs Quyen RIVAS
[2016-05-07] MEDS: oxyCODONE-Acetamin 5-325 mg Tablet PO PRN ×3 (12:26→22:45)
[2016-05-07] MEDS: Amoxicillin-Clav 500-125 mg Tablet PO SCH ×2 (12:46→17:22)
--- NOTE | 2016-05-07 15:55 | PCM.PNMED ---
Subjective Date of Service May 07, 2016 Subjective Rash is regressing Patient remained afebrile, denied abdominal pain Exam Vital Signs Vital Sign - Last Date Time Temp Pulse Resp B/P Pulse Ox O2 Delivery O2 Flow Rate FiO2 05/07/16 12:56 36.9 82 20 169/78 94 Room Air 05/07/16 07:48 4.00 Intake and Output 05/06/16 05/06/16 05/07/16 Cumulative From/Thru 15:00 23:00 07:00 05/04/16 00:04 - 05/07/16 06:04 Intake Total 2441 ml 3601 ml 62893 ml Output Total 2200 ml 3400 ml 87823 ml Balance 241 ml 201 ml 4890 ml Intake Oral 992 ml 800 ml 6504 ml IV Total 1449 ml 2801 ml 32030 ml Output Urine Total 2200 ml 3400 ml 51481 ml # Voids 2 # Bowel Movements 0 0 0 Exam Middle-aged obese female, no JVD, MMM, no LAD RRR, nl s1, s2 no mrg CTAB, no w,c lower abdomen pannus-eryhtematous, less tender, no ulcer Back -diffuse erythematous rash, non tender, less prominent than prior day. warm, no edema, pulses 2/2 IVs and Medications Medications Reviewed: Medications were reviewed in detail Lab and Diagnostics Result Diagram: 05/07/1651705/07/16517 Assessment & Plan This is a 55 Y/O F with hx of CHF, hypertension, DM2, GERD and panniculitis presents to [facility] ED complaining of fever onset 05/03/2016. Associated symptoms included fever, chills, fatigue, diaphoresis, nausea, defecation, vomiting, SOB and chest pain. acute, active #rash due to vancomycin toxicity, increaed Eo, developed 05/05-8 day2 from first infusion. clinically improving -benadryl for itchiness, given no systemic reaction, normal LFT, unlikely DRESS , hold off on steroid -monitor rash daily, trends Eo, LFT, fever curve #Sepsis, SIRS+tachypnea on presentation with a rate of 24, temperature 102.5, heart rate 110, patient's source is panniculitis, group B strep, sens+ to beta lactam. -started vanc/zosyn on adm, stop zosyn 05/05 given BCX result, stop vanc, start keflex 05/06, changed to Augmentin tid per ID input. -no surgical intervention at this time needed given improvement chronic, stable # Hypomagnesemia, this admission, resolved # Congestive heart failure, chronic, unclear baseline EF, likely systolic based on regimen, euvolemic -Continue home medication Amlodipine 2.5 MG PO DAILY -Continue home medication Candesartan 32 MG PO DAILY -Continue home medication Carvedilol 12.5 MG PO BID -Continue home medication Furosemide 40 MG PO DAILY -Continue home medication Isosorbide Mononitrate 30 MG PO DAILY # Hyperlipidemia, -Continue home medication Rosuvastatin 5 MG PO DAILY # Diabetes mellitus, continue lisproSS, encouraged wt reduction # Hypertension, -Medications as stated above # GERD -Continue home medication Omeprazole 20 MG PO BID # Hypothyroidism -Continue home medication Levothyroxine 137 MCG PO DAILY # Anxiety -Continue home medication Alprazolam 0.5 MG PO TID PRN PRN For Anxiety # Chronic pain issues -We will continue home medication Methocarbamol 750 MG PO QID PRN PRN For Spasm -We will continue home medication Oxycodone HCl/Acetaminophen 5-325 1 TAB PO Q4 PRN PRN For Pain # Obstructive sleep apnea -Patient has own BiPAP mask Disposition: likely tomorrow home with oral abx. Code status: Full code PCP: Jarek Buckner Time spent 35min Oliva Ellsworth MD May 07, 2016 15:55
--- NOTE | 2016-05-07 17:53 | NUR ---
Pain/Skin Patient has been complaining of pain in her shoulder and neck, "near where her tumor is", she says. Pain has fluctuated between a 5 and 7 out of 10 throughout the day. Patient received 1 tab of Percocet for the pain. Patient's skin is still red over most of her upper legs, abdomen/breasts, and back. Patient says it has been very itchy today so she received 1 benadryl every 6 hours and says she has been putting lotion on frequently. Patient has call light and has been calling appropriately. Addendum: 05/07/16 at 1835 by LYNSEY MARTÍNEZ RN ACTIVITY Patient complained of shoulder pain. Percocet 1 tab PO has been effective for pain control. Tolerating liquids PO and her diet well. Denies nausea. No emesis noted. Denies SOB. Patient has been ambulating independently in the room. Skin redness persists. Benadryl was administered for complaints of itching. Voiding without any problems.
[2016-05-08 00:13] VITALS: BP 193/107; PULSE 80; RESP 20; O2SAT 94
[2016-05-08] MEDS: Heparin 5,000 Unit/mL Inj SUBQ SCH ×2 (00:19→08:49)
[2016-05-08 04:33] VITALS: BP 153/73; PULSE 80; RESP 20; O2SAT 98
--- NOTE | 2016-05-08 04:39 | NUR ---
Skin integrity / HTN Persistent redness across back. Redness under breasts and pannus improved, redness on thighs unchanged. Benadryl prn itching. Generalized pain adequately controlled with Percocet prn. Persistent hypertension, aware, new meds given, continue to monitor. Hourly rounding ongoing.
[2016-05-08 05:32] LABS: BASOPHILS % (AUTO) 0.4 % (0-3); EOSINOPHILS % (AUTO) 4.1 % (0-5); MONOCYTES % (AUTO) 11.1 % (4-12); Mean Corpuscular Hemoglobin 30.9 pg (27.0-35.0); Mean Corpuscular Volume 94.9 fL (81-100); NEUTROPHILS % (AUTO) 67.2 % (40-74); Platelet Count 190 bil/L (150-400)
[2016-05-08 05:56] LABS: Magnesium 1.6 mg/dL (1.6-2.6); Phosphorus 5.5 mg/dL (2.5-4.9)
[2016-05-08] MEDS: diphenhydrAMINE 25 mg Capsule PO PRN ×2 (06:24→13:48)
[2016-05-08] MEDS: Insulin LISPRO 300 Unit/3 mL Inj SUBQ SCH ×2 (07:57→12:00)
[2016-05-08] MEDS ORDERED: AMOX1TAB11 PO ×2 (08:47→09:30)
[2016-05-08] MEDS: Amoxicillin-Clav 500-125 mg Tablet PO SCH ×2 (08:47→13:45)
--- NOTE | 2016-05-08 08:53 | PCM.DIMED ---
Discharge Instructions Date of Service May 08, 2016 Dates of Hospitalization May 04, 2016 at 01:43 Discharge Diagnosis Discharge Diagnosis Sepsis secondary to panniculitis, group B streptococcus bacteremia vancomycin toxicity Medication Instructions Please take benedryl for itchiness every 6hours as needed Please take Augmentin three times per day for 10more days Diet Low fat, Low Sodium, Heart Healthy, Diabetic Patient Instructions You were hospitalized with severe infection from your abdominal pannus infection , turned into bloodstream infection. You were treated appropriately with antibiotics, developed rash from adverse effect of one of the antibiotics, which is resolving. Please follow medicine instruction as elbow Please have more discussion about bariatric surgery with your doctor, which will eventually benefit to prevent future episode similar to this one. Follow-up plan Please follow-up with your primary doctor in 2 weeks Follow-up Provider: Jarek Buckner MD Follow-up with PCP in: 2 weeks Oliva Ellsworth MD May 08, 2016 08:53
--- NOTE | 2016-05-08 11:00 | NUR ---
Social Work Discharge: SW met with patient at bedside to discuss discharge plan. Plan is home with continued caregiver support and care via [facility]. SW requested that UR specialist coordinate transport home today. Patient has all DME needs, 02, Bipap, wheelchair and walker for use at home. Patient states caregiver to be available today. No other needs identified at this time. SW to follow as further needs arise. PLAN: Home with caregiver support and care via [facility]. Transport via [facility]. SW to follow Quyen RIVAS
--- NOTE | 2016-05-08 13:29 | NUR ---
Faxed [facility] form to [facility] and requested 1400 pick up driver in room 1027 to patients home. This is normal hospital discharge. Updated DIRECTOR OF SOCIAL MEDIA MARKETING
[2016-05-08] MEDS: oxyCODONE-Acetamin 5-325 mg Tablet PO PRN (13:46)
--- NOTE | 2016-05-08 15:00 | NUR ---
Discharged Patient discharged home this afternoon. Pt transported via cabulance. Pt given verbal and written discharge instructions and agreed to understanding them. Prescription for antibiotics given. Pt left with all belongings. Pt will follow up with primary Dr as directed.
--- NOTE | 2016-05-08 16:22 | PCM.DC.MED ---
Discharge Summary Date of Service May 08, 2016 Dates of Hospitalization Date of Hospital Admission May 04, 2016 at 01:43 Date of Discharge: May 08, 2016 Providers: Admitting Physician: Masha Echols DO Primary Care Physician: Jarek Buckner MD Attending Physician: Masha Echols DO Diagnosis at Time of Discharge Diagnosis at Time of Discharge Sepsis secondary to panniculitis, group B streptococcus bacteremia erythematous rash due to vancomycin toxicity chronic # Hypomagnesemia, # Congestive heart failure, chronic, # Hyperlipidemia, # Diabetes mellitus # Hypertension, # GERD # Hypothyroidism # Anxiety # Obstructive sleep apnea Procedures XRay, CTs & MRIs PROCEDURE: X-RAY CHEST ONE VIEW, PORTABLE ([id number]) INDICATIONS: fever, SOB TECHNIQUE: One view of the chest was acquired. COMPARISON: [facility], , CHEST 1VW (PORTABLE), 04/21/2014, 18:22. FINDINGS: Surgical changes and devices: None. Lungs and pleura: No pleural effusions or pneumothorax. Lungs are clear. Mediastinum: Mediastinal contours appear normal. Heart size is normal. Bones and chest wall: No suspicious bony lesions. Overlying soft tissues appear unremarkable. IMPRESSION: No acute cardiopulmonary disease. Dictated by: Matthew Nails [facility] Interpreted: Debi Snyder MD on 05/04/2016 at 9:22 Transcribed by: LIANA on 05/04/2016 at 9:22 Approved by: Debi Snyder M.D. on 05/04/2016 at 9:49 Other Diagnostics Microbiology KATIE CULTURE BLOOD Final 05/07/16-0712 Organism 1 STREP AGALACTIAE - (GROUP B) GRAM STAIN RESULT GRAM POSITIVE COCCI ?STREP BC BOTTLE Isolated from Aerobic Bottle of Set Drawn DATE CALLED: 05/04/16 TIME CALLED: 1416 CALLED BY: MU FLOOR/DOCTOR: KODI/JEM ELDER READ BACK Y TYPE OF DRAW PERIPHERAL DRAW TIME OF POSITIVITY 1400 GRAM STAIN RESULT GRAM POSITIVE COCCI ?STREP BC BOTTLE2 Isolated from Anaerobic Bottle of Set Drawn DATE CALLED: 05/04/16 TIME CALLED: 1450 CALLED BY: MU FLOOR/DOCTOR: BAILEE ELDER READ BACK Y TYPE OF DRAW PERIPHERAL DRAW TIME OF POSITIVITY 1440 ISOLATED FROM FOUR OF FOUR BOTTLES COLLECTED 05/04 "Penicillin and ampicillin continues to be the drugs of choice for treatment of B-hemolytic streptoccal infections. Susceptibility testing of penicillin and other B-lactams approved by the FDA for treatment of B-hemolytic streptococcal infections need not be performed routinely. because non-susceptible isolates (ie. penicillin KATIE's >0.12 and ampicillin MICs >0.25 ug/ml) are extremely rare in any B-hemolytic streptococcal isolate and have not been reported for Streptococcus pyogenes. (CLSI T972-H55 VOL.31 NO 1 2010) CONTINUED ON NEXT PAGE RUN DATE: 05/07/16 [facility] LIVE PAGE 2 RUN TIME: 711 Specimen Inquiry PHYSICIAN Patient: SULY HENRIQUEZ [id number] (Continued) Specimen: [id number] Collected: 05/04/16 Received: 05/04/16 (Continued) Procedure Result Verified Site KAITE CULTURE BLOOD Final (continued) 05/07/16-711 1. STREP AGALACTIAE - (GROUP B) M.I.C Interp --------- ------ * CEFOTAXIME <=0.12 S * CEFTRIAXONE <=0.12 S * CLINDAMYCIN >=1 R * LINEZOLID <=2 S * PENICILLIN-G <=0.06 S * VANCOMYCIN 0.5 S Brief History History of physical performed by This is a 55 Y/O F with hx of CHF, hypertension, DM2 diet controlled(patient unable to tolerate metformin), GERD and recurrent panniculitis status post panniculectomy, history of recurrent abscesses, presents to [facility] ED complaining of fevers that began at 2100 05/03/2016 followed by chills, ears, fatigue, diaphoresis, nausea, urge to defecate with normal bowel movements, vomiting, SOB and chest pain. Her chest began shortly after the fever. Patient took 2 Tylenol and one antibiotic at 2100 with no relief. She denies any recent sick contacts. Patient states that she was taking Humira for "boils" that was given to her by her goggles assembler, but she was unable to refill her prescription for approx. 3 weeks and attributes her current symptoms to this. She recently began Humira again this last Wednesday. She takes one shot per week of Humira. She denies diarrhea, cough or dysuria. Patient is a difficult historian. In emergency department: Vital signs initially temperature 39.4, pulse 110, respiratory rate 24, blood pressure 173/80, O2 sat 94% on room air. Repeat vitals: Temperature 37.7, pulse 99, respiratory rate 20, blood pressure 143/66, O2 97% on 4 L nasal cannula. CBC showed WBC's 16.0, neutrophils 88.9 Chem panel showed glucose 264, mag 1.4L, procalcitonin 0.86, troponin 0.010, lactic acid 2.2. UA grossly negative. ED medications: Patient received Tylenol 975 mg once, Zosyn once IV, Vancomycin 2000 mg once IV, normal saline 1 L, Zofran 8 mg. Hospital Course This is a 55 Y/O F with hx of CHF, hypertension, DM2, GERD and panniculitis presents to [facility] ED complaining of fever onset 05/03/2016. Associated symptoms included fever, chills, fatigue, diaphoresis, nausea, defecation, vomiting, SOB and chest pain. acute #Sepsis, SIRS+tachypnea on presentation with a rate of 24, temperature 102.5, heart rate 110, patient's source is panniculitis, group B Streptococcus bacteremia in 06/30 BCX, sens+ to beta lactam, pt was initially started vanc/ zosyn on adm, stop zosyn / given BCX result, then vanc swithced to keflex / due to rash, eventually changed to Augmentin tid per ID input, plan is to finish 14days. In the past, patient needed surgical intervention for panniculitis but no surgical intervention indicated at this time given improvement with medical treatment. #rash due to vancomycin toxicity, patient developed rash with increased eosinophils on 05/05-8 day2 of vanc given no systemic reaction, very mild transaminitis, no fever, unlikely DRESS, patient was symptomatically treated with Benadryl ,no steroid given. Although pt had mild transaminitis, slightly worsening, clinically rash is regressing with trending down eosinophils, patient deemed safe for discharge chronic, stable # Hypomagnesemia, this admission, resolved # Congestive heart failure, chronic, unclear baseline EF, likely systolic based on regimen, euvolemic -Continue home medication Amlodipine 2.5 MG PO DAILY -Continue home medication Candesartan 32 MG PO DAILY -Continue home medication Carvedilol 12.5 MG PO BID -Continue home medication Furosemide 40 MG PO DAILY -Continue home medication Isosorbide Mononitrate 30 MG PO DAILY # Hyperlipidemia, -Continue home medication Rosuvastatin 5 MG PO DAILY # Diabetes mellitus, continue lisproSS, encouraged wt reduction # Hypertension, -Medications as stated above # GERD -Continue home medication Omeprazole 20 MG PO BID # Hypothyroidism -Continue home medication Levothyroxine 137 MCG PO DAILY # Anxiety -Continue home medication Alprazolam 0.5 MG PO TID PRN PRN For Anxiety # Chronic pain issues -We will continue home medication Methocarbamol 750 MG PO QID PRN PRN For Spasm -We will continue home medication Oxycodone HCl/Acetaminophen 5-325 1 TAB PO Q4 PRN PRN For Pain # Obstructive sleep apnea -Patient has own BiPAP mask Exam Vital Signs (Last) Date Time Temp Pulse Resp B/P Pulse Ox O2 Delivery O2 Flow Rate FiO2 05/08/16 07:59 CPAP/BIPAP 05/08/16 04:33 36.6 80 20 153/73 98 4.00 Exam Middle-aged obese female, no JVD, MMM, no LAD RRR, nl s1, s2 no mrg CTAB, no w,c lower abdomen pannus-eryhtematous, less tender, no ulcer Back -diffuse erythematous rash, non tender, less prominent than prior day. warm, no edema, pulses 2/2 Test 05/04/16 00:45 05/04/16 01:46 05/04/16 07:10 05/05/16 13:25 Erythrocyte Sedimentation Rate 12mm/hr (0-40) Hemoglobin A1c 8.8% (4.8-5.6) Urine Color Yellow (YELLOW) Urine Appearance Clear (CLEAR,HAZY) Urine pH 6.0 (5.0-8.0) Urine Specific [place] 1.020 (1.003-1.035) Urine Protein Negativemg/dL (NEG,TRACE) Urine Glucose (UA) 250mg/dL (NEGATIVE) Urine Ketones Negativemg/dL (NEGATIVE) Urine Occult Blood Negative (NEGATIVE) Urine Nitrite Negative (NEGATIVE) Urine Bilirubin Negative (NEGATIVE) Urine Urobilinogen Normalmg/dL (NORMAL) Urine Leukocyte Esterase Negative (NEGATIVE) Urine RBC 0-2/hpf (0-2) Urine WBC 0-5/hpf (0-5) Urine Epithelial Cells Few/hpf (NONE-MOD) Urine Crystals None seen (NONE SEEN) Urine Bacteria None/hpf (NONE-FEW) Urine Hyaline Casts None/lpf (NONE) Urine Granular Casts None seen (NONE SEEN) Urine Waxy Casts None seen (NONE SEEN) Urine Red Blood Cell Casts None seen (NONE SEEN) Urine White Blood Cell Casts None seen (NONE SEEN) Urine Mucus Present (None Seen) Urine Trichomonas None seen (NONE SEEN) Urine Yeast None (NONE SEEN) Urine Culture Reflexed Not indicated Lactic Acid Level 2.1mmol/L (0.4-2.0) Troponin T < 0.010ug/L (0.0-0.011) Procalcitonin 3.62ng/mL (0.00-0.08) Vancomycin Level Trough 9.8mcg/mL Test 05/08/16 05:15 White Blood Count 8.4th/mm3 (3.8-10.1) Red Blood Count 4.11mil/mm3 (3.90-5.20) Hemoglobin 12.7g/dL (12.0-15.6) Hematocrit 39.0% (35.0-46.0) Mean Corpuscular Volume 94.9fL (81-100) Mean Corpuscular Hemoglobin 30.9pg (27.0-35.0) Mean Corpuscular Hemoglobin Concent 32.6% (32.0-37.0) Red Cell Distribution Width 14.1% (12.3-15.4) Platelet Count 190bil/L (150-400) Neutrophils (%) (Auto) 67.2% (40-74) Lymphocytes (%) (Auto) 15.2% (14-46) Monocytes (%) (Auto) 11.1% (4-12) Eosinophils (%) (Auto) 4.1% (0-5) Basophils (%) (Auto) 0.4% (0-3) Sodium Level 144mEq/L (134-144) Potassium Level 4.0mEq/L (3.5-5.2) Chloride Level 103mEq/L (97-108) Carbon Dioxide Level 25mmol/L (18-29) Blood Urea Nitrogen 10mg/dL (6-24) Creatinine 0.68mg/dL (0.57-1.00) Estimat Glomerular Filtration Rate 129mL/min (>59) Glucose Level 149mg/dL (60-99) Calcium Level 9.0mg/dL (8.5-10.1) Phosphorus Level 5.5mg/dL (2.5-4.9) Magnesium Level 1.6mg/dL (1.6-2.6) Total Bilirubin 0.7mg/dL (0.0-1.2) Aspartate Amino Transf (AST/SGOT) 40U/L (0-50) Alanine Aminotransferase (ALT/SGPT) 34U/L (0-32) Alkaline Phosphatase 74U/L (25-150) Total Protein 5.9g/dL (6.4-8.4) Albumin 3.4g/dL (3.4-5.0) Discharge Medications Discharge Medications Adalimumab (Humira) 40 Mg/0.8 Ml Pen.ij.kit 40 MG SQ WEEKLY (Reported) Amoxicillin/Clav K 500-125 mg (Amoxicillin/Clav K 500-125 mg) 1 Each Tablet 1 TAB PO TIDWM Prescribed by: OLIVA JONES MD Ascorbic Acid (Vitamin C) 500 Mg Capsule.er 500 MG PO DAILY (Reported) Aspirin (Aspirin) 81 Mg Tablet 81 MG PO DAILY (Reported) Candesartan Cilexetil (Atacand) 32 Mg Tablet 32 MG PO DAILY (Reported) Carvedilol (Carvedilol) 12.5 Mg Tablet 12.5 MG PO BID Prescribed by: SHANA LU DO Cholecalciferol (Vitamin D3) (Vitamin D3) 2,000 Unit Capsule 1-2 CAPSULE PO DAILY (Reported) Fluticasone Propionate (Fluticasone Propionate Nasal) 16 Gm [place].susp 2 SPRAY NS DAILY (Reported) Levothyroxine (Levothyroxine) 137 Mcg Tablet 137 MCG PO DAILY (Reported) Nefazodone (Nefazodone) 150 Mg Tablet 2 TAB PO HS (Reported) Omeprazole (Omeprazole) 20 Mg Capsule.dr 20 MG PO DAILY (Reported) Rosuvastatin Calcium (Crestor) 5 Mg Tablet 5 MG PO DAILY (Reported) As needed Alprazolam (Alprazolam) 0.5 Mg Tablet 0.5 MG PO TID PRN PRN For Anxiety ( Reported) Docusate Sodium (Docusate Sodium) 250 Mg Capsule 250 MG PO BID PRN PRN For Constipation (Reported) Methocarbamol (Methocarbamol) 750 Mg Tablet 750 MG PO QID PRN PRN For Spasm Prescribed by: EVGENY LARSON Nystatin (Nystatin) 60 Applic/15 Gm Cream 60 APPLIC TOP PRN AD (Reported) oxyCODONE-Acetaminophen 5-325 mg (oxyCODONE-Acetaminophen 5-325 mg) 1 Each Tablet 1 TAB PO Q4H PRN PRN For Pain (Reported) Miscellaneous Medications ([multivitamin 9]) (Reported) Cyanocobalamin/Folic Acid (Vitamin Y13-Qlchr Acid Tablet) 1 Each Tablet 1 EACH PO (Reported) Additional med instructions Please take benedryl for itchiness every 6hours as needed Please take Augmentin three times per day for 10more days Followup Plan Disposition: home Follow-up plan Please follow-up with your primary doctor in 2 weeks Discharge Diet: Low fat, Low Sodium, Heart Healthy, Diabetic Patient Instructions You were hospitalized with severe infection from your abdominal pannus infection , turned into bloodstream infection. You were treated appropriately with antibiotics, developed rash from adverse effect of one of the antibiotics, which is resolving. Please follow medicine instruction as elbow Please have more discussion about bariatric surgery with your doctor, which will eventually benefit to prevent future episode similar to this one. Follow-up Provider: Jarek Buckner MD Follow-up with PCP in: 2 weeks Time spent 65min Oliva Jones MD May 08, 2016 16:22
== END 2016-05-08 14:58 | disposition home or self-care (01) | DRG 872 ==
LOC: SED 23:22 → EDUNIT# 23:22 → EDBD 23:22 → OSC 05-04 01:43
PROVIDERS: ADMIT Internal Medicine; ATTEND Internal Medicine
DX: A40.1 Sepsis due to streptococcus, group B (principal); Z68.44 Body mass index [BMI] 60.0-69.9, adult; I50.22 Chronic systolic (congestive) heart failure; M79.3 Panniculitis, unspecified; E66.01 Morbid (severe) obesity due to excess calories; E11.65 Type 2 diabetes mellitus with hyperglycemia; I10 Essential (primary) hypertension; K21.9 Gastro-esophageal reflux disease without esophagitis; E83.42 Hypomagnesemia; E78.5 Hyperlipidemia, unspecified; E03.9 Hypothyroidism, unspecified; G89.29 Other chronic pain; F41.9 Anxiety disorder, unspecified; G47.33 Obstructive sleep apnea (adult) (pediatric); Z79.82 Long term (current) use of aspirin; Z87.891 Personal history of nicotine dependence

== ENCOUNTER 2016-10-27 13:57 | Emergency (ER) | payer MEDICARE, MEDICAID ==
[~2016-10-27] VITALS: Ht 175.3 cm; Wt 195.0 kg
[~2016-10-27 13:57] MED LIST changes: +ADAL40PE SQ; -AMLO2.5T PO; +AMOX1TAB11 PO; -ASPI-628 PO; +ASPI-973 PO; -ASPI81TA3 PO; -CEPH500C PO; -CLIN-78 PO; -CLIN30GE2 TP; +FLUT16SP NS; -FLUT16SP2 NS; -FURO40TA4 PO; -ISOS30TA PO; -MEDR10TA PO; -MEDR10TA9 PO; -OMEP-113 PO; +OMEP20CA11 PO; -OMPR20CCR PO; -OXYC-284 PO; +OXYC1TAB24 PO
[2016-10-27 13:59] VITALS: BP 150/82; PULSE 78; RESP 20; O2SAT 96
--- NOTE | 2016-10-27 14:31 | ED.REPORT ---
HPI-Rash / Abscess Date of Service Oct 27, 2016 ED Provider: Saige Parrish MD Pt is a 56 year old female with a hx of chronic pain, DM, HTN and CHF presenting to the ED complaining of a rash on her lower abdomen onset yesterday. Associated symptoms include a fever, shaking chills, redness and swelling, syncope (she reports "blacking out" several times), body aches, intermittent left hip pain (over the last few years), and constipation. Denies nausea, vomiting, or diarrhea. Nursing Notes Stated Complaint: ABDOMINAL PAIN Chief Complaint: Skin Rash/Abscess Nursing Notes Reviewed: Yes Allergies: Coded Allergies: latex (Verified Allergy, Intermediate, SKIN BLISTERS, 10/27/16) Cat Dander (Verified Allergy, Unknown, 10/27/16) TAPE (Verified Allergy, Unknown, 10/27/16) lisinopril (Verified Allergy, Unknown, makes me "drunk", 04/16/14) metformin (Verified Allergy, Unknown, 05/04/16) Uncoded Allergies: POLLENS (Allergy, Unknown, 04/02/14) Scheduled Adalimumab (Humira) 40 Mg/0.8 Ml Pen.ij.kit 40 MG SQ WEEKLY Amoxicillin/Clav K 500-125 mg (Amoxicillin/Clav K 500-125 mg) 1 Each Tablet 1 TAB PO TIDWM Ascorbic Acid (Vitamin C) 500 Mg Capsule.er 500 MG PO DAILY Aspirin (Aspirin) 81 Mg Tablet 81 MG PO DAILY Candesartan Cilexetil (Atacand) 32 Mg Tablet 32 MG PO DAILY Carvedilol (Carvedilol) 12.5 Mg Tablet 12.5 MG PO BID Cephalexin (Keflex) 500 Mg Capsule 500 MG PO TID Cholecalciferol (Vitamin D3) (Vitamin D3) 2,000 Unit Capsule 1-2 CAPSULE PO DAILY Fluticasone Propionate (Fluticasone Propionate Nasal) 16 Gm [place].susp 2 SPRAY NS DAILY Levothyroxine (Levothyroxine) 137 Mcg Tablet 137 MCG PO DAILY Nefazodone (Nefazodone) 150 Mg Tablet 2 TAB PO HS Omeprazole (Omeprazole) 20 Mg Capsule.dr 20 MG PO DAILY Rosuvastatin Calcium (Crestor) 5 Mg Tablet 5 MG PO DAILY Scheduled PRN Alprazolam (Alprazolam) 0.5 Mg Tablet 0.5 MG PO TID PRN PRN For Anxiety Docusate Sodium (Docusate Sodium) 250 Mg Capsule 250 MG PO BID PRN PRN For Constipation Methocarbamol (Methocarbamol) 750 Mg Tablet 750 MG PO QID PRN PRN For Spasm Nystatin (Nystatin) 60 Applic/15 Gm Cream 60 APPLIC TOP PRN AD oxyCODONE-Acetaminophen 5-325 mg (oxyCODONE-Acetaminophen 5-325 mg) 1 Each Tablet 1 TAB PO Q4H PRN PRN For Pain Miscellaneous Medications ([multivitamin 9]) Cyanocobalamin/Folic Acid (Vitamin R31-Jjcvx Acid Tablet) 1 Each Tablet 1 EACH PO General Time Seen by MD: 14:29 Chief Complaint Rash Hx Obtained From: Patient, EMS Arrived By: Ambulance Onset Occurred: Yesterday Symptom Duration: Since onset Location: : Abdomen: Lower extremity (Left hip) Quality: Painful Severity: Current: Moderate Severity: Maximum: Severe Associated with: Reports Fever, Reports Joint pain, Reports Shaking chills, Denies Nausea, Denies Vomiting Recent Healthcare: No recent doctor visit, No recent hospitalization, Previous surgery Similar Sx Previous: Yes Past Medical History Past Medical History Notes: Last Admitted March 2014 for panniculitis Last ED visit was in September 2015 for panniculitis Past Medical History Kidney stones ovarian cysts cataract GERD 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 - followed at the [facility], recently had MRI patient reports "it is a medical mystery", and it sounds like diagnosis is actually unclear History of reccurent panniculitis Reports: Congestive heart failure, Diabetes mellitus, Hypertension Past Surgical History pannus removal Reports: Hysterectomy Smoking History Former Smoker Social History Alcohol Use: Denies alcohol use Drug Use: Denies drug use Other Social History: Local resident Ambulatory Status Wheelchair Review of Systems Constitutional: Reports: Chills, Fever GI: Reports: Constipation, Denies: Diarrhea, Nausea, Vomiting Musculoskeletal: Reports: Joint pain Skin: Reports Rash Complete sys rev & neg: except as marked. Neurologic: Reports: Syncope Physical Exam Initial Vital Signs Vital Signs (First) Date Time Temp Pulse Resp B/P Pulse Ox O2 Delivery O2 Flow Rate FiO2 10/27/16 13:59 36.8 78 20 150/82 96 Room Air Initial VS: Reviewed Head / Eyes: Atraumatic, Normocephalic, PERRL ENT: Mucous membranes moist, Conjunctiva normal, No scleral icterus Neck: Supple, Non-tender, Full range of motion Respiratory: Breath sounds normal, Clear to auscultation, No respiratory distress Cardiovascular: Regular rate & rhythm, Heart sounds normal, Intact distal pulses Abdomen / GI: Soft, Non-tender, No guarding, No rebound, No distention Extremities: Vascular intact, Neuro intact, No swelling, No tenderness Neurologic: Alert, Oriented, Nonfocal Psychiatric: Mood/affect normal, Behavior normal, Normal thought content General/Constitutional: Awake, Alert, No acute distress Appearance / Presentation: Positive: Obese, morbidly Skin: Warm, Dry Large area of redness greater than 20 cm to her pannus and pubic symphysis. No fluctuance. Mildly tender. Interpretation & Diagnostics Lab Results Interpretation Result Diagram: 10/27/16 1450 10/27/16 1639 Test 10/27/16 14:50 10/27/16 16:34 10/27/16 16:39 White Blood Count 11.4th/mm3 (3.8-10.1) Red Blood Count 4.14mil/mm3 (3.90-5.20) Hemoglobin 12.6g/dL (12.0-15.6) Hematocrit 39.3% (35.0-46.0) Mean Corpuscular Volume 94.9fL (81-100) Mean Corpuscular Hemoglobin 30.4pg (27.0-35.0) Mean Corpuscular Hemoglobin Concent 32.1% (32.0-37.0) Red Cell Distribution Width 13.8% (12.3-15.4) Platelet Count 203bil/L (150-400) Neutrophils (%) (Auto) 78.3% (40-74) Lymphocytes (%) (Auto) 12.0% (14-46) Monocytes (%) (Auto) 8.3% (4-12) Eosinophils (%) (Auto) 0.9% (0-5) Basophils (%) (Auto) 0.2% (0-3) Hold Blue Top Tube Received (Received) Hold Jerez Top Tube Received (Received) Sodium Level 136mEq/L (134-144) Potassium Level 3.7mEq/L (3.5-5.2) Chloride Level 97mEq/L (97-108) Carbon Dioxide Level 23mmol/L (18-29) Blood Urea Nitrogen 11mg/dL (6-24) Creatinine 0.83mg/dL (0.57-1.00) Estimat Glomerular Filtration Rate 102mL/min (>59) Glucose Level 166mg/dL (60-99) Calcium Level 8.9mg/dL (8.5-10.1) X-Ray Interpretation Xray Interpretation: IMPRESSION: Mild left hip joint degeneration Dictated by: Shaheen Hicks M.D. on 10/27/2016 at 15:50 X-Ray Ordered: Hip left Interpretation / Wet Read by: Interpret - Radiologist Re-Eval/Medical Decision Med Decision/Clinical Course The patient presents with recurrent symptoms, in the past she has gone out group B strep. She is given a dose of ceftriaxone here is not appear to be any worsening of her rash. The patient has a leukocytosis but no signs of sepsis. Patient has an acceptable glucose and has not developed any abnormalities in her vital signs and is a good candidate for outpatient trial of antibiotics. I explained to her if she has any worsening symptoms she needs to return to the emergency department. The area of redness was marked off using a surgical pen and she was told to check it every hour while she is awake. Re-Evaluation/Progress #1: Time of Eval: 17:00 Patient Status: Condition improved Re-Evaluation/Progress Note: Marked the edges of the rash. The color of the rash seems to be fading a little. Discussed x ray results and plan for discharge. Pt understands and agrees. Re-Evaluation/Progress #2: Time of Eval: 17:37 Re-Evaluation/Progress Note: Rechecked the rash, it is slightly improved. Counseled Regarding: Diagnosis, Lab results, Need for follow-up, When/why to return to ED Discharge & Departure Impression: Primary Impression: Panniculitis Disposition: Home Discharge Condition All VS Reviewed: Yes Condition: Improved Patient Instructions: Acute Rash (ED) Additional Instructions: Make sure you take your antibiotic as directed. Return to the ER if you feel more ill, if your fever returns, or if you develop any concerning symptoms. Keep an eye on the rash and if the redness expands past the line drawn around it , return to the ER. Take the first dose of antibiotics tomorrow morning. Referrals: Jarek Buckner MD (PCP) Scribe Attestation Portions of this note were transcribed by Selena Vance. I, Dr. Parrish personally performed the history, physical exam and medical decision-making; I reviewed and confirmed the accuracy of the information in the transcribed note. Signed by : Jordan Moreno, 10/27/2016. copies to: Jarek Buckner MD, Jena M MD Oct 27, 2016 14:30 SELENA VANCE Oct 27, 2016 14:37
[2016-10-27] MEDS ORDERED: cefTRIAXone Inj 2,000 MG in Dextrose 5% Minibag Plus 50 ML IV ONE (15:00)
--- NOTE | 2016-10-27 15:53 | DRSVH ---
PROCEDURE: X-RAY LEFT HIP COMPLETE, MINIMUM TWO VIEWS ([id number]) INDICATIONS: pain TECHNIQUE: 2 views of the hip were acquired. COMPARISON: None. FINDINGS: Bones: No fractures or dislocations. No suspicious bony lesions. The visualized pelvic ring appear s intact. Mild left hip joint degeneration Soft tissues: No suspicious soft tissue calcifications or masses. IMPRESSION: Mild left hip joint degeneration Dictated by: Shaheen Hicks M.D. on 10/27/2016 at 15:50 Approved by: Shaheen Hicks M.D. on 10/27/2016 at 15:51
[2016-10-27 16:23] LABS: BASOPHILS % (AUTO) 0.2 % (0-3); EOSINOPHILS % (AUTO) 0.9 % (0-5); MONOCYTES % (AUTO) 8.3 % (4-12); Mean Corpuscular Hemoglobin 30.4 pg (27.0-35.0); Mean Corpuscular Volume 94.9 fL (81-100); NEUTROPHILS % (AUTO) 78.3 % (40-74); Platelet Count 203 bil/L (150-400)
[2016-10-27 17:09] VITALS: BP 143/77; PULSE 76; RESP 21; O2SAT 96
[2016-10-27] MEDS ORDERED: CEPH-512 PO (17:42)
[2016-10-27 18:02] VITALS: BP 131/78; PULSE 77; RESP 14; O2SAT 96
== END 2016-10-27 18:03 | disposition home or self-care (01) ==
LOC: SED 13:57
DX: M79.3 Panniculitis, unspecified (principal); I11.0 Hypertensive heart disease with heart failure; I50.9 Heart failure, unspecified; K21.9 Gastro-esophageal reflux disease without esophagitis; E11.9 Type 2 diabetes mellitus without complications; Z87.891 Personal history of nicotine dependence; Z90.710 Acquired absence of both cervix and uterus; Z79.82 Long term (current) use of aspirin; Z79.899 Other long term (current) drug therapy; Z88.8 Allergy status to other drugs, medicaments and biological substances; Z91.040 Latex allergy status; J30.81 Allergic rhinitis due to animal (cat) (dog) hair and dander
CPT/HCPCS: 36415; 73502; 80048; 85025; 87040; 96365; 99284; J0696